=== PATIENT | female | born 1975 | race Hispanic/Latino ===

== ENCOUNTER 2023-02-16 06:57 | Day surgery (SDC) | payer BC, OTHER ==
[2023-02-16] MEDS: NA CHLORIDE 0.9% 1,000 ML ONE ×2 (08:33→09:30)
[2023-02-16] MEDS ORDERED: LIDOCAINE 2% MPF 5 ML VIAL ONE (08:37)
[2023-02-16] MEDS ORDERED: propofoL 200 MG/20 ML VIAL IV ONE (08:38)
[2023-02-16 13:35] VITALS: BP 116/72; TEMP 96.9; O2SAT 98
== END 2023-02-16 09:43 | disposition home or self-care (01) ==
LOC: OR 06:57
PROVIDERS: ATTEND Surgery
PROC: 0DJD8ZZ Inspection of Lower Intestinal Tract, Via Natural or Artificial Opening Endoscopic (ICD-10-PCS; principal; 2023-02-16 08:30)
DX: Z12.11 Encounter for screening for malignant neoplasm of colon (principal); K64.4 Residual hemorrhoidal skin tags; K64.8 Other hemorrhoids
CPT/HCPCS: 82947; 45378; J2704; J2001; J7030